=== PATIENT | female | born 1960 | race Two or more races ===

== ENCOUNTER 2018-12-23 15:56 | Outpatient (CLI) | payer OTHER | END 2018-12-23 16:51 | disposition home or self-care (01) | LOC: RAD 15:56 | DX: M75.52 Bursitis of left shoulder (principal) ==

== ENCOUNTER 2019-11-26 14:58 | Outpatient (CLI) | payer OTHER | END 2019-11-26 14:59 | disposition home or self-care (01) | LOC: SONOGRAMA 14:58 | DX: E04.2 Nontoxic multinodular goiter (principal) ==

== ENCOUNTER 2020-07-22 15:48 | Outpatient (CLI) | payer OTHER | END 2020-07-22 15:56 | disposition HB | LOC: RAD 15:48 | PROVIDERS: ATTEND Family Medicine | DX: M17.11 Unilateral primary osteoarthritis, right knee (principal) ==

== ENCOUNTER 2021-05-13 08:00 | Outpatient (CLI) | payer OTHER | END 2021-05-13 08:30 | disposition home or self-care (01) | LOC: PPH VACUNA 08:00 | PROVIDERS: ATTEND Emergency Medicine Pediatric Emergency Medicine | DX: Z23 Encounter for immunization (principal) ==

== ENCOUNTER 2021-11-02 15:00 | Outpatient (CLI) | payer OTHER | END 2021-11-02 15:12 | disposition home or self-care (01) | LOC: SONOGRAMA 15:00 | PROVIDERS: ATTEND Internal Medicine Gastroenterology | DX: R16.0 Hepatomegaly, not elsewhere classified (principal) ==

== ENCOUNTER 2023-03-23 11:53 | Outpatient (CLI) | payer OTHER | END 2023-03-23 12:01 | disposition home or self-care (01) | LOC: SONOGRAMA 11:53 | DX: E03.9 Hypothyroidism, unspecified (principal) ==

== ENCOUNTER 2024-03-28 14:54 | Outpatient (CLI) | payer OTHER | END 2024-03-28 15:07 | disposition home or self-care (01) | LOC: SONOGRAMA 14:54 | PROVIDERS: ATTEND Family Medicine | DX: R31.21 Asymptomatic microscopic hematuria (principal) ==

== ENCOUNTER 2024-03-31 14:28 | Outpatient (CLI) | payer OTHER | END 2024-03-31 14:37 | disposition home or self-care (01) | LOC: RAD 14:28 | PROVIDERS: ATTEND Family Medicine | DX: M50.020 Cervical disc disorder with myelopathy, mid-cervical region, unspecified level (principal) ==

== ENCOUNTER 2024-10-17 12:14 | Outpatient (CLI) | payer OTHER | END 2024-10-17 12:19 | disposition home or self-care (01) | LOC: RAD 12:14 | PROVIDERS: ATTEND Obstetrics & Gynecology | DX: Z00.00 Encounter for general adult medical examination without abnormal findings (principal); Z87.891 Personal history of nicotine dependence ==